=== PATIENT | female | born 1965 | race Caucasian/White ===

== ENCOUNTER → 2017-02-07 | Outpatient (REF) | payer MEDICAID, OTHER ==
[2017-02-07 13:43] LABS: BASO % 0.4 % (0.0-1.0); EOS # 0.1 K/mm3 (0.0-0.50); EOS % 1.8 % (0.0-3.0); LARGE UNSTAINED CELL # 0.1 K/mm3 (0.0-0.4); LARGE UNSTAINED CELL % 1.5 % (0.0-4.0); LYMPH # 1.3 K/mm3 (1.5-4.5); LYMPH % 28.4 % (24.0-44.0); MEAN CORPUSCULAR HEMOGLOBIN 31.5 pg (27.0-33.0); MEAN CORPUSCULAR HGB CONC 35.3 g/dl (32.0-36.5); MEAN CORPUSCULAR VOLUME 89.4 fl (80.0-96.0); MONO # 0.3 K/mm3 (0.0-0.8); MONO % 6.6 % (0.0-5.0); NEUTROPHILS # 2.7 K/mm3 (1.8-7.7); NEUTROPHILS % 61.4 % (36.0-66.0); PLATELET COUNT, AUTOMATED 231 k/mm3 (150-450); RED CELL DISTRIBUTION WIDTH 12.9 % (11.5-14.5); WHITE BLOOD COUNT 4.4 K/mm3 (4.0-10.0)
[2017-02-07 14:31] LABS: ALBUMIN 3.7 GM/DL (3.2-5.2); ALBUMIN/GLOBULIN RATIO 1.23 (1.00-1.93); ALKALINE PHOSPHATASE 61 U/L (45-117); ALT/SGPT 21 U/L (12-78); ANION GAP 10 MEQ/L (8-16); AST/SGOT 16 U/L (15-37); BILIRUBIN,TOTAL 0.4 MG/DL (0.2-1.0); BLOOD UREA NITROGEN 11 MG/DL (7-18); CALCIUM LEVEL 9.2 MG/DL (8.5-10.1); CARBON DIOXIDE LEVEL 25 MEQ/L (21-32); CHLORIDE LEVEL 111 MEQ/L (98-107); CHOLESTEROL LEVEL 179 MG/DL (<200); CREATININE FOR GFR 0.75 MG/DL (0.55-1.02); GLOMERULAR FILTRATION RATE > 60.0 (>51); GLUCOSE, FASTING 88 MG/DL (70-105); POTASSIUM SERUM 4.2 MEQ/L (3.5-5.1); SODIUM LEVEL 146 MEQ/L (136-145); TOTAL PROTEIN 6.7 GM/DL (6.4-8.2); TRIGLYCERIDES LEVEL 112 MG/DL (<150)
== END ==
LOC: M LAB REF 09:20
PROVIDERS: ATTEND Family Medicine Addiction Medicine
DX: M35.01 Sjogren syndrome with keratoconjunctivitis (principal); Z00.01 Encounter for general adult medical examination with abnormal findings

== ENCOUNTER → 2017-04-24 | Outpatient (CLI) | payer OTHER ==
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
== END ==
LOC: M PAIN 14:00
PROVIDERS: ATTEND Anesthesiology
DX: M46.1 Sacroiliitis, not elsewhere classified (principal); M54.2 Cervicalgia; G89.29 Other chronic pain; R51 Headache; Z79.899 Other long term (current) drug therapy; Z88.5 Allergy status to narcotic agent; Z88.6 Allergy status to analgesic agent

== ENCOUNTER → 2017-05-07 | Outpatient (CLI) | payer OTHER ==
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
== END ==
LOC: M PAIN 14:30
PROVIDERS: ATTEND Anesthesiology
DX: G89.29 Other chronic pain (principal); M46.1 Sacroiliitis, not elsewhere classified; M54.2 Cervicalgia; M51.16 Intervertebral disc disorders with radiculopathy, lumbar region; F41.9 Anxiety disorder, unspecified; F31.9 Bipolar disorder, unspecified; R25.2 Cramp and spasm; Z79.899 Other long term (current) drug therapy; Z88.6 Allergy status to analgesic agent; Z88.5 Allergy status to narcotic agent

== ENCOUNTER → 2017-06-07 | Outpatient (REF) | payer OTHER, MEDICAID ==
[2017-06-07 16:08] LABS: CPK CREATINE PHOSPHOKINASE 88 U/L (26-192)
== END ==
LOC: M LABDRAW1 13:58
DX: G72.0 Drug-induced myopathy (principal); M35.9 Systemic involvement of connective tissue, unspecified

== ENCOUNTER 2017-06-14 22:51 | Emergency (ER) | payer OTHER, MEDICAID ==
[2017-06-15] MEDS ORDERED: METOCLOPRAMIDE INJ 10MG/2ML VIAL (J2765) As Ordered (01:04)
[2017-06-15] MEDS ORDERED: MORPHINE 4 MG/ML 1ML SYRINGE As Ordered (01:04)
[2017-06-15] MEDS: MORPHINE 4 MG/ML 1ML SYRINGE IV (01:45)
[2017-06-15] MEDS: METOCLOPRAMIDE INJ 10MG/2ML VIAL (J2765) IV (01:45)
[2017-06-15 01:59] LABS: BASO % 0.2 % (0.0-1.0); EOS # 0.1 10^3/uL (0.0-0.50); EOS % 1.1 % (0.0-3.0); HEMATOCRIT 39.5 % (36.0-47.0); IMMATURE GRANULOCYTE % 0.2 % (0-0); LYMPH # 1.2 10^3/uL (1.5-4.5); LYMPH % 27.3 % (24.0-44.0); MEAN CORPUSCULAR HEMOGLOBIN 30.6 pg (27.0-33.0); MEAN CORPUSCULAR HGB CONC 35.4 g/dl (32.0-36.5); MEAN CORPUSCULAR VOLUME 86.4 fl (80.0-96.0); MONO # 0.2 10^3/uL (0.0-0.8); MONO % 5.1 % (0.0-5.0); NEUTROPHILS % 66.1 % (36.0-66.0); PLATELET COUNT, AUTOMATED 240 10^3/uL (150-450); RED BLOOD COUNT 4.57 10^6/uL (4.00-5.40); WHITE BLOOD COUNT 4.5 10^3/uL (4.0-10.0)
[2017-06-15 02:03] LABS: INR 0.97
[2017-06-15 02:04] LABS: PARTIAL THROMBOPLASTIN TIME 29.3 SECONDS (26.8-37.9)
[2017-06-15 02:08] LABS: ANION GAP 9 MEQ/L (8-16); BLOOD UREA NITROGEN 12 MG/DL (7-18); CALCIUM LEVEL 8.9 MG/DL (8.5-10.1); CARBON DIOXIDE LEVEL 25 MEQ/L (21-32); CHLORIDE LEVEL 109 MEQ/L (98-107); CREATININE FOR GFR 0.62 MG/DL (0.55-1.02); GLOMERULAR FILTRATION RATE > 60.0 (>51); GLUCOSE, FASTING 94 MG/DL (70-105); POTASSIUM SERUM 4.2 MEQ/L (3.5-5.1); SODIUM LEVEL 143 MEQ/L (136-145)
[2017-06-15] MEDS: HYDROmorphone HCL 1 MG/ML SYRINGE (J1170) IV (02:15)
[2017-06-15] MEDS: ONDANSETRON 4 MG ORAL DISINTEGRATING TAB (S0181) PO ×3 (03:45)
[2017-06-15] MEDS: NORCO 5/325MG TABLET (BULK FOR ED) PO (03:45)
== END 2017-06-15 04:06 | disposition home or self-care (01) ==
LOC: M ED 22:51
DX: S82.851A Displaced trimalleolar fracture of right lower leg, initial encounter for closed fracture (principal); W00.9XXA Unspecified fall due to ice and snow, initial encounter; X50.9XXA Other and unspecified overexertion or strenuous movements or postures, initial encounter; Y92.410 Unspecified street and highway as the place of occurrence of the external cause; Y93.89 Activity, other specified; Y99.8 Other external cause status; F17.210 Nicotine dependence, cigarettes, uncomplicated
CPT/HCPCS: J1170

== ENCOUNTER → 2017-06-17 | Outpatient (CLI) | payer OTHER | LOC: M LAB 12:56 | DX: Z01.818 Encounter for other preprocedural examination (principal); S82.851A Displaced trimalleolar fracture of right lower leg, initial encounter for closed fracture; X58.XXXA Exposure to other specified factors, initial encounter; Y92.89 Other specified places as the place of occurrence of the external cause | CPT/HCPCS: 93005 ==

== ENCOUNTER 2017-06-18 10:24 | Day surgery (SDC) | payer OTHER ==
[2017-06-18] MEDS: NORCO, ANEXSIA 5/325MG TABLET (HYDROcodone/ACETAMINOPHEN) PO (10:45)
[2017-06-18] MEDS: LR 1,000 ML IV ×2 (11:00→17:04)
[2017-06-18] MEDS: CEFAZOLIN SOD 1 GM in APPROPRIATE DILUENT 1 EA IV (12:57)
[2017-06-18] MEDS ORDERED: PROPOFOL 200 MG/20 ML VIAL As Ordered (12:58)
[2017-06-18] MEDS ORDERED: MIDAZOLAM INJ 2 MG/2 ML VIAL (J2250) As Ordered ×2 (12:58→13:16)
[2017-06-18] MEDS ORDERED: fentaNYL 100 MCG/2 ML INJECTION (J3010) As Ordered ×2 (12:58→15:03)
[2017-06-18] MEDS: BUPIVACAINE HCL 0.25% 30 ML VIAL As Ordered (13:22)
[2017-06-18] MEDS: LIDOCAINE W/EPINEPHRINE 1% 20ML VIAL As Ordered (13:22)
[2017-06-18] MEDS: ceFAZolin 1GM INJ (J0690 PER 500MG) As Ordered (14:14)
[2017-06-18] MEDS ORDERED: ePHEDrine INJ 50 MG/ML VIAL As Ordered (14:43)
[2017-06-18] MEDS ORDERED: PERCOCET 5MG/325MG TAB As Ordered (15:03)
[2017-06-18] MEDS ORDERED: ONDANSETRON 4MG/2ML VIAL (J2405) As Ordered (15:03)
[2017-06-18] MEDS: PERCOCET 5MG/325MG TAB PO ×2 (15:10→18:38)
[2017-06-18] MEDS: fentaNYL 100 MCG/2 ML INJECTION (J3010) IV ×4 (15:10→15:26)
[2017-06-18] MEDS: ONDANSETRON 4MG/2ML VIAL (J2405) IV (15:15)
[2017-06-18] MEDS ORDERED: PROMETHAZINE INJ 25 MG/ML VIAL (J2550) IV (15:30)
[2017-06-18] MEDS ORDERED: PERCOCET 5MG/325MG TAB PO (15:30)
[2017-06-18] MEDS ORDERED: HYDROmorphone HCL 1 MG/ML SYRINGE (J1170) IV ×2 (15:45)
[2017-06-18] MEDS: D5W/LR 1,000 ML IV (16:20)
[2017-06-18] MEDS ORDERED: clonazePAM 0.5 MG TAB PO (16:45)
[2017-06-18] MEDS: **UNRESOLVED NON-FORMULARY MED ORDER XX (17:06)
[2017-06-18] MEDS: ZIPRASIDONE 20MG CAPSULE (GEODON) PO (21:01)
[2017-06-18] MEDS: MORPHINE 2 MG/ML 1ML SYRINGE IV (21:08)
[2017-06-19] MEDS: **UNRESOLVED NON-FORMULARY MED ORDER XX (00:01)
[2017-06-19] MEDS: PERCOCET 5MG/325MG TAB PO ×3 (01:09→12:25)
[2017-06-19] MEDS: MORPHINE 2 MG/ML 1ML SYRINGE IV (06:10)
[2017-06-19] MEDS: HYDROXYCHLOROQUINE 200 MG TAB PO (07:56)
[2017-06-19] MEDS: MIRALAX *UNIT DOSE* 17GM PACKET PO (07:57)
[2017-06-19] MEDS: MORPHINE 15 MG SA TAB PO (11:15)
== END 2017-06-19 12:50 | disposition home or self-care (01) ==
LOC: M SDC 10:24 → M MS5PR 16:00 → M SDC 06-19 12:50
DX: S82.851A Displaced trimalleolar fracture of right lower leg, initial encounter for closed fracture (principal); W01.0XXA Fall on same level from slipping, tripping and stumbling without subsequent striking against object, initial encounter; Y92.89 Other specified places as the place of occurrence of the external cause; Y93.89 Activity, other specified; Y99.8 Other external cause status; F31.9 Bipolar disorder, unspecified; K21.9 Gastro-esophageal reflux disease without esophagitis; K59.00 Constipation, unspecified; K58.9 Irritable bowel syndrome, unspecified; M54.9 Dorsalgia, unspecified; R51 Headache; Z88.5 Allergy status to narcotic agent; Z88.6 Allergy status to analgesic agent; Z79.899 Other long term (current) drug therapy; Z90.710 Acquired absence of both cervix and uterus; Z72.0 Tobacco use
CPT/HCPCS: 27822

== ENCOUNTER → 2017-07-12 | Outpatient (CLI) | payer OTHER | LOC: M PAIN 11:15 | DX: M54.2 Cervicalgia (principal); M51.16 Intervertebral disc disorders with radiculopathy, lumbar region; G89.29 Other chronic pain; F41.9 Anxiety disorder, unspecified; F31.9 Bipolar disorder, unspecified; M35.00 Sjogren syndrome, unspecified; Z79.899 Other long term (current) drug therapy; Z88.5 Allergy status to narcotic agent; Z88.6 Allergy status to analgesic agent | CPT/HCPCS: G0463 ==

== ENCOUNTER 2017-08-02 14:46 | Outpatient (RCR) | payer MEDICAID | END 2017-08-31 | LOC: M PT 14:46 | DX: Z51.89 Encounter for other specified aftercare (principal); S82.851D Displaced trimalleolar fracture of right lower leg, subsequent encounter for closed fracture with routine healing; W18.30XD Fall on same level, unspecified, subsequent encounter; Y92.009 Unspecified place in unspecified non-institutional (private) residence as the place of occurrence of the external cause ==

== ENCOUNTER 2017-09-03 10:22 | Outpatient (RCR) | payer MEDICAID | END 2017-09-30 | LOC: M PT 10:22 | DX: Z51.89 Encounter for other specified aftercare (principal); S82.851D Displaced trimalleolar fracture of right lower leg, subsequent encounter for closed fracture with routine healing; W18.30XD Fall on same level, unspecified, subsequent encounter; Y92.009 Unspecified place in unspecified non-institutional (private) residence as the place of occurrence of the external cause ==

== ENCOUNTER 2017-10-02 11:11 | Outpatient (RCR) | payer MEDICAID | END 2017-10-31 | LOC: M PT 11:11 | DX: Z51.89 Encounter for other specified aftercare (principal); S82.851D Displaced trimalleolar fracture of right lower leg, subsequent encounter for closed fracture with routine healing; W18.30XD Fall on same level, unspecified, subsequent encounter; Y92.009 Unspecified place in unspecified non-institutional (private) residence as the place of occurrence of the external cause ==

== ENCOUNTER 2017-10-21 18:53 | Emergency (ER) | payer MEDICAID ==
[2017-10-21] MEDS: LIDOCAINE 5% OINT 30 GM TOP (21:34)
== END 2017-10-21 21:40 | disposition home or self-care (01) ==
LOC: M ED 18:53
DX: K64.4 Residual hemorrhoidal skin tags (principal); K59.00 Constipation, unspecified; Z87.19 Personal history of other diseases of the digestive system; M35.00 Sjogren syndrome, unspecified; F17.200 Nicotine dependence, unspecified, uncomplicated; Z88.5 Allergy status to narcotic agent; Z88.6 Allergy status to analgesic agent; Z79.899 Other long term (current) drug therapy
CPT/HCPCS: 99283

== ENCOUNTER 2017-10-23 19:32 | Emergency (ER) | payer MEDICAID ==
[2017-10-24] MEDS: KETOROLAC TROMETHAMINE 10 MG TAB PO
[2017-10-24] MEDS: CIPROFLOXACIN 500 MG TAB PO (00:04)
== END 2017-10-24 00:35 | disposition home or self-care (01) ==
LOC: M ED 10-24 00:35
DX: K61.0 Anal abscess (principal); K64.4 Residual hemorrhoidal skin tags; F31.9 Bipolar disorder, unspecified; K58.9 Irritable bowel syndrome, unspecified; Z79.899 Other long term (current) drug therapy; Z88.6 Allergy status to analgesic agent; Z88.5 Allergy status to narcotic agent
CPT/HCPCS: 99283

== ENCOUNTER → 2017-10-29 | Outpatient (CLI) | payer MEDICAID | LOC: M PAIN 14:45 | DX: M54.2 Cervicalgia (principal); G89.29 Other chronic pain; F41.9 Anxiety disorder, unspecified; F31.9 Bipolar disorder, unspecified; M35.00 Sjogren syndrome, unspecified; Z79.899 Other long term (current) drug therapy; Z88.5 Allergy status to narcotic agent; Z88.6 Allergy status to analgesic agent | CPT/HCPCS: G0463 ==

== ENCOUNTER → 2017-10-29 | Outpatient (CLI) | payer MEDICAID | LOC: M RAD 17:10 | DX: M54.2 Cervicalgia (principal) | CPT/HCPCS: 72040 ==

== ENCOUNTER → 2017-10-31 | Outpatient (CLI) | payer MEDICAID | LOC: M PAIN 15:15 | DX: G89.29 Other chronic pain (principal); M54.2 Cervicalgia; F41.9 Anxiety disorder, unspecified; F31.9 Bipolar disorder, unspecified; M62.838 Other muscle spasm; M54.6 Pain in thoracic spine; F17.210 Nicotine dependence, cigarettes, uncomplicated; Z79.899 Other long term (current) drug therapy; Z88.5 Allergy status to narcotic agent; Z88.6 Allergy status to analgesic agent | CPT/HCPCS: G0463 ==

== ENCOUNTER → 2017-12-11 | Outpatient (CLI) | payer OTHER | LOC: M RAD 16:56 | DX: M47.892 Other spondylosis, cervical region (principal); M50.223 Other cervical disc displacement at C6-C7 level | CPT/HCPCS: 72141 ==

== ENCOUNTER → 2017-12-16 | Outpatient (CLI) | payer OTHER | LOC: M PAIN 13:00 | DX: G89.29 Other chronic pain (principal); M50.10 Cervical disc disorder with radiculopathy, unspecified cervical region; F41.9 Anxiety disorder, unspecified; F31.9 Bipolar disorder, unspecified; F17.210 Nicotine dependence, cigarettes, uncomplicated; M54.6 Pain in thoracic spine; M62.838 Other muscle spasm; Z79.899 Other long term (current) drug therapy; Z88.5 Allergy status to narcotic agent; Z88.6 Allergy status to analgesic agent | CPT/HCPCS: G0463 ==

== ENCOUNTER → 2017-12-18 | Outpatient (CLI) | payer OTHER ==
[~2017-12-18] MED LIST: ISOVUE-M 300 61% 15ML VIAL (Q9967) As Ordered; LIDOCAINE 1% SDV INJ 30 ML VIAL As Ordered; diazePAM 5 MG TAB As Ordered; methylPREDNISolone SUSP 40 MG/ML (DEPO-medrol) VIAL (J1030) As Ordered
== END ==
LOC: M PAIN 11:00
DX: G89.29 Other chronic pain (principal); M50.10 Cervical disc disorder with radiculopathy, unspecified cervical region; F41.9 Anxiety disorder, unspecified; F31.9 Bipolar disorder, unspecified; M35.00 Sjogren syndrome, unspecified; F17.210 Nicotine dependence, cigarettes, uncomplicated; Z79.899 Other long term (current) drug therapy; Z88.5 Allergy status to narcotic agent; Z88.6 Allergy status to analgesic agent
CPT/HCPCS: J1030

== ENCOUNTER → 2018-01-14 | Outpatient (CLI) | payer OTHER | LOC: M PAIN 13:15 | DX: M50.10 Cervical disc disorder with radiculopathy, unspecified cervical region (principal); F17.210 Nicotine dependence, cigarettes, uncomplicated; M35.00 Sjogren syndrome, unspecified; F31.9 Bipolar disorder, unspecified; F41.9 Anxiety disorder, unspecified; Z79.899 Other long term (current) drug therapy; Z88.8 Allergy status to other drugs, medicaments and biological substances; Z90.710 Acquired absence of both cervix and uterus | CPT/HCPCS: G0463 ==

== ENCOUNTER → 2018-01-27 | Outpatient (CLI) | payer OTHER | LOC: M RAD 09:54 | DX: Z12.31 Encounter for screening mammogram for malignant neoplasm of breast (principal); Z80.3 Family history of malignant neoplasm of breast | CPT/HCPCS: 77067 ==

== ENCOUNTER → 2018-02-10 | Outpatient (CLI) | payer OTHER | LOC: M RAD 14:11 | DX: R92.0 Mammographic microcalcification found on diagnostic imaging of breast (principal) | CPT/HCPCS: 77065 ==

== ENCOUNTER → 2018-02-27 | Outpatient (CLI) | payer OTHER | LOC: M RAD 07:17 | DX: T84.84XA Pain due to internal orthopedic prosthetic devices, implants and grafts, initial encounter (principal); Z87.81 Personal history of (healed) traumatic fracture; Y83.1 Surgical operation with implant of artificial internal device as the cause of abnormal reaction of the patient, or of later complication, without mention of misadventure at the time of the procedure ==

== ENCOUNTER → 2018-08-28 | Outpatient (REF) | payer OTHER ==
[~2018-08-28] MED LIST changes: +ASPI325T PO; +BIOT1CAP2 PO; +BIOT50004 PO; +CALC500T49 PO; +CIPR-249 PO; +CLON0.5T8 PO; +COLA100C5 PO; +CYCL10TA PO; +FIBE625T PO; +FLAG500T PO; +GEOD60CA PO; +IBUPOTC PO; -ISOVUE-M 300 61% 15ML VIAL (Q9967) As Ordered; -LIDOCAINE 1% SDV INJ 30 ML VIAL As Ordered; +MELOPOW XX; +MIRA33504 PO; +OMEP20CA3 PO; +PERC5TAB12 PO; +PILO5TAB3 PO; +PROBCAP4 PO; +PROC1CRE2 TOP; +RANI75TA15 PO; +VITA-115 PO; +ZOFR4TAB16 PO; -diazePAM 5 MG TAB As Ordered; -methylPREDNISolone SUSP 40 MG/ML (DEPO-medrol) VIAL (J1030) As Ordered; +plaquenil PO
[2018-08-28 16:22] LABS: EOS # 0.2 10^3/uL (0.0-0.50); EOS % 3.6 % (0.0-3.0); HEMATOCRIT 42.5 % (36.0-47.0); HEMOGLOBIN 14.6 g/dl (12.0-15.5); LYMPH # 1.3 10^3/uL (1.5-4.5); LYMPH % 31.7 % (24.0-44.0); MEAN CORPUSCULAR HEMOGLOBIN 31.1 pg (27.0-33.0); MEAN CORPUSCULAR HGB CONC 34.4 g/dl (32.0-36.5); MEAN CORPUSCULAR VOLUME 90.6 fl (80.0-96.0); MONO # 0.3 10^3/uL (0.0-0.8); MONO % 8.2 % (0.0-5.0); NEUTROPHILS # 2.3 10^3/uL (1.8-7.7); NEUTROPHILS % 55.3 % (36.0-66.0); PLATELET COUNT, AUTOMATED 210 10^3/uL (150-450); RED BLOOD COUNT 4.69 10^6/uL (4.00-5.40); WHITE BLOOD COUNT 4.2 10^3/uL (4.0-10.0)
[2018-08-28 16:55] LABS: ALBUMIN 3.7 GM/DL (3.2-5.2); ALT/SGPT 16 U/L (12-78); BILIRUBIN,TOTAL 0.4 MG/DL (0.2-1.0); BLOOD UREA NITROGEN 18 MG/DL (7-18); CALCIUM LEVEL 8.8 MG/DL (8.5-10.1); CARBON DIOXIDE LEVEL 28 MEQ/L (21-32); CHLORIDE LEVEL 109 MEQ/L (98-107); COMPLEMENT C3 107 MG/DL (90-180); COMPLEMENT C4 19 MG/DL (10-40); CREATININE FOR GFR 0.83 MG/DL (0.55-1.30); FREE T4 1.02 NG/DL (0.76-1.46); GLOMERULAR FILTRATION RATE > 60.0 (>51); GLUCOSE, FASTING 79 MG/DL (70-100); POTASSIUM SERUM 4.6 MEQ/L (3.5-5.1); SODIUM LEVEL 143 MEQ/L (136-145); TOTAL PROTEIN 6.8 GM/DL (6.4-8.2)
[2018-08-28 17:23] LABS: ERYTHROCYTE SEDIMENTATION RATE 4 mm/hr (0-30)
[2018-08-30 16:40] LABS: ANTI DOUBLE STRAND-DNA AB 6 IU/mL (0-9); RNP ANTIBODY 0.4 AI (0.0-0.9); SMITHS ANTIBODY < 0.2 AI (0.0-0.9); SSA SJOGRENS A <0.2 AI (0.0-0.9); SSB SJOGRENS B 0.4 AI (0.0-0.9)
[2018-08-31 00:07] LABS: ANA (HEP2) Negative (.)
== END ==
LOC: M SFHCPLAZ 13:54
PROVIDERS: ATTEND Internal Medicine Rheumatology
DX: M35.01 Sjogren syndrome with keratoconjunctivitis (principal)

== ENCOUNTER → 2018-09-29 | Outpatient (REF) | payer OTHER, MEDICAID ==
[~2018-09-29] MED LIST changes: +ASPI-1 PO; -ASPI325T PO
[2018-09-29 13:35] LABS: ALBUMIN 3.5 GM/DL (3.2-5.2); ALT/SGPT 20 U/L (12-78); BILIRUBIN,TOTAL 0.5 MG/DL (0.2-1.0); BLOOD UREA NITROGEN 11 MG/DL (7-18); CALCIUM LEVEL 8.6 MG/DL (8.5-10.1); CARBON DIOXIDE LEVEL 28 MEQ/L (21-32); CHLORIDE LEVEL 111 MEQ/L (98-107); CHOLESTEROL LEVEL 179 MG/DL (<200); CHOLESTEROL RISK RATIO 2.386 (<5); CREATININE FOR GFR 0.93 MG/DL (0.55-1.30); GLOMERULAR FILTRATION RATE > 60.0 (>51); GLUCOSE, FASTING 82 MG/DL (70-100); HDL CHOLESTEROL 75 MG/DL (>40); LDL CHOLESTEROL 75 MG/DL (<100); NON-HDL-C 104 MG/DL; POTASSIUM SERUM 4.2 MEQ/L (3.5-5.1); SODIUM LEVEL 143 MEQ/L (136-145); TOTAL PROTEIN 6.8 GM/DL (6.4-8.2); TRIGLYCERIDES LEVEL 147 MG/DL (<150)
== END ==
LOC: M LAB REF 12:00
PROVIDERS: ATTEND Family Medicine Addiction Medicine
DX: Z00.00 Encounter for general adult medical examination without abnormal findings (principal)